=== PATIENT | male | born 1995 | race Caucasian/White ===

== ENCOUNTER 2020-07-01 19:29 | Emergency (ER) | payer OTHER ==
--- NOTE | 2020-07-01 20:26 | XRAY Report ---
PROCEDURE: Wrist 4 View LT INDICATIONS: Trauma TECHNIQUE: 4 views of the wrist were acquired. COMPARISON: None. FINDINGS: Bones: No fractures or dislocations. No suspicious bony lesions. Scaphoid view: Intact. Soft tissues: No suspicious soft tissue calcifications. IMPRESSION: No acute osseous abnormality. Reviewed by: Srinivasa Perez MD on 07/01/2020 8:25 PM PST Approved by: Srinivasa Perez MD on 07/01/2020 8:25 PM PST Station ID: [id number]
--- NOTE | 2020-07-01 20:38 | ED Physician Documentation ---
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 States has an abrasion to the left knee. No pain with ambulation. He states the left hand and wrist are hurting. Worse with movement, better with rest. Patient is right-handed. Review of Systems Constitutional: denies: Fever GI: denies: Vomiting Musculoskeletal: denies: Neck pain, Back pain Neurologic: denies: Head injury PD PAST MEDICAL HISTORY - Past Medical History Past Medical History: No - Past Surgical History Past Surgical History: No - Allergies Allergies/Adverse Reactions: Allergies Allergy/AdvReac Type Severity Reaction Status Date / Time No Known Drug Allergies Allergy Verified 07/01/20 19:33 - Social History Does the pt smoke?: No Smoking Status: Never smoker Does the pt drink ETOH?: Yes Does the pt have substance abuse?: No - Immunizations Immunizations are current?: Yes - POLST Patient has POLST: No PD ED PE NORMAL - Vitals Vital signs reviewed: Yes - General General: Alert and oriented X 3, No acute distress - HEENT HEENT: Atraumatic, PERRL, Moist mucous membranes - Neck Neck: Supple, no meningeal sign, No bony TTP - Cardiac Cardiac: RRR, Strong equal pulses - Respiratory Respiratory: No respiratory distress, Clear bilaterally - Abdomen Abdomen: Soft, Non tender, Non distended - Back Back: No spinal TTP - Derm Derm: Warm and dry - Extremities Extremities: Other (Mild tenderness to palpation over the dorsum of the left hand and left wrist. No snuffbox tenderness. Full range of motion. Neurovascularly intact. Mild abrasion to left knee. No pain or tenderness or swelling. Otherwise normal extremity exam) - Neuro Neuro: Alert and oriented X 3, No motor deficit, No sensory deficit Results - Vitals Vitals: Vital Signs - 24 hr 07/01/20 07/01/20 19:33 20:43 Temperature 36.6 C 37.2 C Heart Rate 62 74 Respiratory 16 16 Rate Blood Pressure 140/90 H 142/92 H O2 Saturation 100 99 Oxygen O2 Source Room air - Rads (name of study) left Wrist x-ray Radiology: Prelim report reviewed, EMP read contemporaneously, See rad report (No acute abnormality) PD MEDICAL DECISION MAKING - ED course Complexity details: reviewed results, considered differential, d/w patient ED course: Patient with a left hand/wrist sprain. Knee abrasion as well. No acute findings on x-ray. Patient counseled regarding signs and symptoms for which I believe and urgent re-evaluation would be necessary. Patient with good understanding of and agreement to plan and is comfortable going home at this time This document was made in part using voice recognition software. While efforts are made to proofread this document, sound alike and grammatical errors may occur. Departure - Departure Disposition: 01 Home, Self Care Clinical Impression: Sprain of wrist, left Qualifiers: Encounter type: initial encounter Qualified Code(s): S63.502A - Unspecified sprain of left wrist, initial encounter Abrasion of knee, left Qualifiers: Encounter type: initial encounter Qualified Code(s): S80.212A - Abrasion, left knee, initial encounter Condition: Good Instructions: ED Sprain Wrist Follow-Up: SAVANAH ANGEL MD [Primary Care Provider] - Within 1 week Comments: Wear the splint as needed for comfort. Return if you worsen. You can use Motrin and/or Tylenol as needed for pain. Your x-ray does not show any acute abnormalities today. Discharge Date/Time: 07/01/20 20:50
[2020-07-01 20:45] VITALS: BP 142/92
== END 2020-07-01 20:50 | disposition home or self-care (01) ==
LOC: ED 19:29
DX: S63.502A Unspecified sprain of left wrist, initial encounter (principal); S63.92XA Sprain of unspecified part of left wrist and hand, initial encounter; S80.212A Abrasion, left knee, initial encounter; W11.XXXA Fall on and from ladder, initial encounter; Y93.89 Activity, other specified; Y92.135 Garage on military base as the place of occurrence of the external cause; Y99.1 Military activity
CPT/HCPCS: 99283; 99284

== ENCOUNTER 2021-11-21 08:00 | Outpatient (CLI) | payer OTHER | END 2021-11-21 23:59 | disposition home or self-care (01) | LOC: LAB.N 08:00 | PROVIDERS: ATTEND Physician Assistant Medical | DX: Z53.9 Procedure and treatment not carried out, unspecified reason (principal) ==